=== PATIENT | male | born 1980 | race Caucasian/White ===

== ENCOUNTER 2024-08-02 10:51 | Outpatient (CLI) | payer OTHER, SELFPAY | END 2024-08-02 10:52 | disposition home or self-care (01) | LOC: LKVREF 10:53 | PROVIDERS: PCP Family Medicine; Visit Provider Nurse Practitioner Family | DX: L08.9 Local infection of the skin and subcutaneous tissue, unspecified (principal); R21 Rash and other nonspecific skin eruption; R53.83 Other fatigue | CPT/HCPCS: 86618 ==